=== PATIENT | female | born 1980 | race Caucasian/White ===

== ENCOUNTER 2017-03-27 09:57 | Emergency (ER) | payer BC ==
[2017-03-27 10:15] VITALS: BP 103/59
--- NOTE | 2017-03-27 11:09 | UC ---
Lower Extremity/Ankle HPI - HPI Summary HPI Summary: Pt presents with left medial thigh pain s/p being kicked in this area by a horse about 1 hour prior to her arrival to urgent care. She is able to ambulate , but has significant pain. There is a mild puncture wound that is oozing blood and soaking her jeans. She believes her tetanus was within the last 5 years. - History of Current Complaint Chief Complaint: UCLowerExtremity Stated Complaint: LEG INJURY Time Seen by Provider: 03/27/17 10:29 Hx Obtained From: Patient Hx Last Menstrual Period: current Onset/Duration: Sudden Onset Severity Initially: Severe Severity Currently: Severe Pain Intensity: 9 Pain Scale Used: 0-10 Numeric Aggravating Factor(s): Standing, Ambulation Alleviating Factor(s): Rest Able to Bear Weight: Yes - Allergies/Home Medications Allergies/Adverse Reactions: Allergies Allergy/AdvReac Type Severity Reaction Status Date / Time No Known Allergies Allergy Verified 03/27/17 10:15 Home Medications: Home Medications Ibuprofen 800 mg PO DAILY PRN 03/27/17 [History Confirmed 03/27/17] PMH/Surg Hx/FS Hx/Imm Hx Previously Healthy: Yes Other History Of: Negative For: HIV, Hepatitis B, Hepatitis C - Surgical History Surgical History: Yes Surgery Procedure, Year, and Place: Tonsillectomy 1984. Rt Rotator Cuff repair 1997, x2 - Family History Known Family History: Positive: None, Other - cancer GM - Social History Occupation: Employed Full-time Lives: With Family Alcohol Use: None Substance Use Type: None Smoking Status (MU): Never Smoked Tobacco Have You Smoked in the Last Year: No - Immunization History Most Recent Influenza Vaccination: 11/2015 Most Recent Tetanus Shot: 01/03 Most Recent Pneumonia Vaccination: N/A Review of Systems Constitutional: Negative Respiratory: Negative Cardiovascular: Negative Neurovascular: Negative Musculoskeletal: Edema - Left thigh pain, Other: - Left thigh pain Neurological: Negative Psychological: Negative All Other Systems Reviewed And Are Negative: Yes Physical Exam Triage Information Reviewed: Yes Appearance: Well-Appearing, No Pain Distress, Well-Nourished Vital Signs: Initial Vital Signs Temp 99.2 F 03/27/17 10:11 Pulse 63 03/27/17 10:11 Resp 20 03/27/17 10:11 BP 103/59 03/27/17 10:11 Pulse Ox 99 03/27/17 10:11 Vital Signs Reviewed: Yes Neck: Positive: Supple, No Lymphadenopathy, Other: - NTTP. Respiratory: Positive: Chest non-tender, Lungs clear, Normal breath sounds, No respiratory distress, No accessory muscle use Cardiovascular: Positive: RRR, No Murmur, Pulses Normal - Left popliteal, DP, and TP, Brisk Capillary Refill - Left LE Musculoskeletal: Positive: Strength Intact - Left LE, ROM Intact - Left LE Neurological: Positive: Alert, Other: - Sensations intact left LE Psychological: Positive: Age Appropriate Behavior Skin: Positive: Other - Left medial thigh: 3mm oval shaped laceration with surrounding edema and tenderness. No ecchymosis, erythema, or FB. Lower Extremity Course/Dx - Course Course Of Treatment: REPORT AND IMPRESSION: Anterior soft tissue swelling at the mid thigh. Negative for conspicuous subcutaneous emphysema or foreign body. Negative for fracture or articular malalignment. Suspect contusion and hematoma. Advised to elevate and ice the area. Go to ED if pain increases, pallor, numbness/tingling, or increasing swelling. - Differential Dx/Diagnosis Provider Diagnoses: Left medial thigh contusion and hematoma Discharge - Discharge Plan Condition: Stable Disposition: HOME Patient Education Materials: Hematoma (ED) Referrals: No Primary Care Phys,NOPCP [Primary Care Provider] - Additional Instructions: If you develop a fever, shortness of breath, chest pain, new or worsening symptoms - please call your PCP or go to the ED. 1) Keep a loose bandage on the wound to absorb any drainage 2) Apply Ice throughout the day 20 minutes on and 20 minutes off. May take ibuprofen 600mg every 6-8 hours as needed for pain and swelling. 3) If the leg becomes taught, increasingly painful, with decreased sensations, or pale lower leg/foot - please go to the ER immediately.
--- NOTE | 2017-03-27 11:14 | RAD ---
Indication: LEFT anterior femur pain and swelling following being kicked by horse. Associated small laceration. Comparison: No relevant prior exams available on the [facility] PACS for comparison. Technique: AP and lateral views LEFT femur. REPORT AND IMPRESSION: Anterior soft tissue swelling at the mid thigh. Negative for conspicuous subcutaneous emphysema or foreign body. Negative for fracture or articular malalignment.
== END 2017-03-27 11:39 | disposition home or self-care (01) ==
LOC: UCEAST 09:57
DX: S70.12XA Contusion of left thigh, initial encounter (principal); S71.112A Laceration without foreign body, left thigh, initial encounter; W55.12XA Struck by horse, initial encounter; Y93.9 Activity, unspecified; Y92.9 Unspecified place or not applicable
CPT/HCPCS: 99212; G0463

== ENCOUNTER 2017-12-25 10:32 | Emergency (ER) | payer BC ==
[2017-12-25 10:41] VITALS: BP 94/59
--- NOTE | 2017-12-25 10:47 | UC ---
Throat Pain/Nasal Deshaun HPI - HPI Summary HPI Summary: 37 yo female presents with sinus pain/pressure/congestion for the last 2 weeks with a dry cough that started 2 days ago. She has been taking ibuprofen for a sinus headache with good relief. Denies fever, chills, sore throat, SOB, chest pain. - History of Current Complaint Chief Complaint: UCRespiratory Stated Complaint: SINUS COMPLAINT Time Seen by Provider: 12/25/17 10:47 Hx Obtained From: Patient Hx Last Menstrual Period: 12/17/17 Pain Intensity: 0 Pain Scale Used: 0-10 Numeric - Allergies/Home Medications Allergies/Adverse Reactions: Allergies Allergy/AdvReac Type Severity Reaction Status Date / Time No Known Allergies Allergy Verified 12/25/17 10:41 PMH/Surg Hx/FS Hx/Imm Hx - Additional Past Medical History Additional PMH: None Other History Of: Negative For: HIV, Hepatitis B, Hepatitis C - Surgical History Surgical History: Yes Surgery Procedure, Year, and Place: Tonsillectomy 1984. Rt Rotator Cuff repair 1997, x2 - Family History Known Family History: Positive: Other - cancer GM - Social History Occupation: Employed Full-time Lives: With Family Alcohol Use: None Substance Use Type: None Smoking Status (MU): Never Smoked Tobacco Have You Smoked in the Last Year: No - Immunization History Most Recent Influenza Vaccination: 11/2015 Most Recent Tetanus Shot: 01/03 Most Recent Pneumonia Vaccination: N/A Review of Systems Constitutional: Negative Skin: Negative Eyes: Negative ENT: Sinus Congestion, Sinus Pain/Tenderness Respiratory: Cough Cardiovascular: Negative Gastrointestinal: Negative Motor: Negative Neurovascular: Negative Neurological: Negative Psychological: Negative All Other Systems Reviewed And Are Negative: Yes Physical Exam - Summary Physical Exam Summary: GENERAL: NAD. WDWN. No pain distress. SKIN: No rashes, sores, lesions, or open wounds. HEENT: Head: AT/NC Eyes: EOM intact. Conjunctiva clear without inflammation or discharge. Ears: Hearing grossly normal. TMs intact, no bulging, erythema, or edema. Nose: Nasal mucosa mildly swollen and erythematous with clear discharge. TTP maxillary and frontal sinus. Positive post nasal drip Throat: Posterior oropharynx without exudates, erythema, or tonsillar enlargement. Uvula midline. NECK: Supple. Nontender. No lymphadenopathy. CHEST: CTAB. No r/r/w. No accessory muscle use. Breathing comfortably and in no distress. CV: RRR. Without m/r/g. Pulses intact. NEURO: Alert. PSYCH: Age appropriate behavior. Triage Information Reviewed: Yes Vital Signs: Initial Vital Signs Temp 97.8 F 12/25/17 10:38 Pulse 73 12/25/17 10:38 Resp 16 12/25/17 10:38 BP 94/59 12/25/17 10:38 Pulse Ox 99 12/25/17 10:38 Vital Signs Reviewed: Yes Throat Pain/Nasal Course/Dx - Course Course Of Treatment: Sinusitis - Differential Dx/Diagnosis Provider Diagnoses: Sinusitis Discharge - Sign-Out/Discharge Documenting (check all that apply): Patient Departure All imaging exams completed and their final reports reviewed: No Studies - Discharge Plan Condition: Stable Disposition: HOME Prescriptions: Amoxicillin PO (*) [Amoxicillin 875 MG (*)] 875 mg PO BID #14 tab Patient Education Materials: Sinusitis (ED) Referrals: No Primary Care Phys,NOPCP [Primary Care Provider] - Additional Instructions: If you develop a fever, shortness of breath, chest pain, new or worsening symptoms - please call your PCP or go to the ED. - Billing Disposition and Condition Condition: STABLE Disposition: Home
== END 2017-12-25 11:01 | disposition home or self-care (01) ==
LOC: UCEAST 10:32
DX: J32.9 Chronic sinusitis, unspecified (principal)
CPT/HCPCS: 99212; G0463

== ENCOUNTER 2018-10-25 13:36 | Emergency (ER) | payer BC, OTHER ==
--- NOTE | 2018-10-25 13:45 | UC ---
Shoulder Pain HPI - HPI Summary HPI Summary: 38 yo female presents with RIGHT arm pain. She tells me that about 2 months ago she was kicked in the right upper arm by a horse. Had extensive bruising to the area for a few weeks with decreased ROM and pain, but eventually improved after 3-4 weeks. Since that time has had decreased ROM in her right shoulder and it "aches" after repetitive usage. She has been taking ibuprofen for discomfort with little relief. She has a hx of right rotator cuff repair at age 17 and states this feels similar. She is left handed. Denies numbness or tingling. - History of Current Complaint Stated Complaint: RECHECK OF ELBOW AND SHOULDER INJURY Time Seen by Provider: 10/25/18 13:45 Hx Obtained From: Patient Hx Last Menstrual Period: 12/17/17 Onset/Duration: Sudden Onset, Gradual Onset Severity Initially: Severe Severity Currently: Mild Pain Intensity: 3 Pain Scale Used: 0-10 Numeric - Allergies/Home Medications Allergies/Adverse Reactions: Allergies Allergy/AdvReac Type Severity Reaction Status Date / Time No Known Allergies Allergy Verified 10/25/18 14:02 PMH/Surg Hx/FS Hx/Imm Hx - Additional Past Medical History Additional PMH: None Other History Of: Negative For: HIV, Hepatitis B, Hepatitis C - Surgical History Surgical History: Yes Surgery Procedure, Year, and Place: Tonsillectomy 1984. Rt Rotator Cuff repair 1997, x2 - Family History Known Family History: Positive: None, Other - cancer GM - Social History Lives: With Family Alcohol Use: None Substance Use Type: None Smoking Status (MU): Never Smoked Tobacco Have You Smoked in the Last Year: No - Immunization History Most Recent Influenza Vaccination: 11/2015 Most Recent Tetanus Shot: 01/03 Most Recent Pneumonia Vaccination: N/A Review of Systems All Other Systems Reviewed And Are Negative: No Constitutional: Positive: Negative Respiratory: Positive: Negative Cardiovascular: Positive: Negative Musculoskeletal: Positive: Other: - Right shoulder pain Neurological: Positive: Negative Psychological: Positive: Negative Physical Exam - Summary Physical Exam Summary: GENERAL: NAD. WDWN. No pain distress. SKIN: No rashes, sores, lesions, or open wounds. CHEST: No accessory muscle use. Breathing comfortably and in no distress. CV: Pulses intact radial and ulnar. Cap refill <2seconds MSK: RIGHT ELBOW: FROM. NTTP. RIGHT SHOULDER: Flexion to 90deg before pain stops her. Pain with apley. Positive neer and bellamy. Mild TTP about posterior shoulder girdle. NEURO: Alert. Sensations intact C4-T1 b/l PSYCH: Age appropriate behavior. Triage Information Reviewed: Yes Vital Signs Reviewed: Yes Diagnostics - Radiology Shoulder Radiology Interpretation Completed By: Radiologist Summary of Radiographic Findings: IMPRESSION: NO ACUTE OSSEOUS INJURY. IF SYMPTOMS PERSIST, RECOMMEND REPEAT IMAGING. Elbow Radiology Interpretation Completed By: Radiologist Summary of Radiographic Findings: IMPRESSION: NO ACUTE OSSEOUS INJURY. IF SYMPTOMS PERSIST, RECOMMEND REPEAT IMAGING. Shoulder Course/Dx - Course Course Of Treatment: XRs negative. Suspect rotator cuff or glenoid/labrum injury. Will refer her to Orthopedics for further evaluation - Differential Dx/Diagnosis Provider Diagnosis: Right shoulder pain, Right elbow pain Discharge ED - Sign-Out/Discharge Documenting (check all that apply): Patient Departure All imaging exams completed and their final reports reviewed: Yes - Discharge Plan Condition: Stable Disposition: HOME Patient Education Materials: Rotator Cuff Injury (ED) Referrals: No Primary Care Phys,NOPCP [Primary Care Provider] - Blaine Donaldson MD [Medical Doctor] - Additional Instructions: If you develop a fever, shortness of breath, chest pain, new or worsening symptoms - please call your PCP or go to the ED immediately. Your X-Rays were normal today. Given your injury and exam today, I am suspicious that you may have a rotator cuff or labrum shoulder injury. I recommend that you call Orthopedics at the number below to schedule an appointment for further evaluation - Billing Disposition and Condition Condition: STABLE Disposition: Home
[2018-10-25 14:02] VITALS: BP 116/57
== END 2018-10-25 14:46 | disposition home or self-care (01) ==
LOC: UCEAST 13:36
DX: M25.511 Pain in right shoulder (principal); M25.521 Pain in right elbow
CPT/HCPCS: 99211; G0463

== ENCOUNTER 2019-04-15 11:21 | Emergency (ER) | payer BC, OTHER ==
[2019-04-15 11:31] VITALS: BP 109/68
--- NOTE | 2019-04-15 11:41 | UC ---
UC General HPI - HPI Summary HPI Summary: STates she is going on two weeks of sinus congestion, fullness tenderness and headache. States she thought she was getting better and now it seems worse. + Post nasal drip. Some coughing. No fever. Has tried motrin and some OTC medications that made her more tired. Works at [employer] in [employer]; Reviewed - History of Current Complaint Chief Complaint: UCGeneralIllness Stated Complaint: SINUS ISSUE Time Seen by Provider: 04/15/19 11:33 Hx Last Menstrual Period: Pain Intensity: 2 - Allergy/Home Medications Allergies/Adverse Reactions: Allergies Allergy/AdvReac Type Severity Reaction Status Date / Time No Known Allergies Allergy Verified 04/15/19 11:32 Home Medications: Home Medications Amoxicillin/Clavulanate TAB* [Augmentin TAB 875*] 875 mg PO BID #20 tab [Rx] PMH/Surg Hx/FS Hx/Imm Hx Previously Healthy: Yes Other History Of: Negative For: HIV, Hepatitis B, Hepatitis C - Surgical History Surgical History: Yes Surgery Procedure, Year, and Place: 1997 - RT SHOULDER ROTATOR CUFF [facility]. TONSILS OUT - CHILDHOOD. 2 - Family History Known Family History: Positive: None, Other - cancer GM - Social History Alcohol Use: None Substance Use Type: None Smoking Status (MU): Never Smoked Tobacco Have You Smoked in the Last Year: No - Immunization History Most Recent Influenza Vaccination: 11/2015 Most Recent Tetanus Shot: 01/03 Most Recent Pneumonia Vaccination: N/A Review of Systems All Other Systems Reviewed And Are Negative: Yes ENT: Positive: Sinus Congestion, Sinus Pain/Tenderness Physical Exam Triage Information Reviewed: Yes Appearance: Well-Appearing Vital Signs: Initial Vital Signs Temp 97.8 F 04/15/19 11:29 Pulse 66 04/15/19 11:29 Resp 16 04/15/19 11:29 BP 109/68 04/15/19 11:29 Pulse Ox 100 04/15/19 11:29 Vital Signs Reviewed: Yes ENT: Positive: Pharyngeal erythema, Nasal congestion, Sinus tenderness - frontal and maxillary b/l, Other - clear fluid b/l TMs, dull Neck: Positive: Supple, Nontender Respiratory: Positive: Lungs clear, Normal breath sounds Cardiovascular: Positive: RRR, No Murmur Course/Dx - Course Course Of Treatment: This is a 39 yr old with two weeks of sinus congestion/tenderness and headache Sinusitis Plan Start Augmentin as prescribed Can also try Flonase over the counter and decongestant sudafed as needed as directed If symptoms persist or worsen, recommend follow up with PCP or return to urgent care - Diagnoses Provider Diagnosis: Sinusitis Discharge ED - Sign-Out/Discharge Documenting (check all that apply): Patient Departure All imaging exams completed and their final reports reviewed: No Studies - Discharge Plan Condition: Good Disposition: HOME Prescriptions: Amoxicillin/Clavulanate TAB* [Augmentin TAB 875*] 875 mg PO BID #20 tab Patient Education Materials: Sinusitis (ED) Referrals: Olive Carter NP [Primary Care Provider] - Additional Instructions: Start Augmentin as prescribed Can also try Flonase over the counter and decongestant sudafed as needed as directed If symptoms persist or worsen, recommend follow up with PCP or return to urgent care - Billing Disposition and Condition Condition: GOOD Disposition: Home
== END 2019-04-15 11:45 | disposition home or self-care (01) ==
LOC: UCEAST 11:21
DX: J32.9 Chronic sinusitis, unspecified (principal)
CPT/HCPCS: 99212; G0463